=== PATIENT | female | born 1935 | race Caucasian/White ===

== ENCOUNTER → 2018-02-13 | Day surgery (SDC) | payer OTHER, MEDICARE ==
--- NOTE | 2018-02-16 10:50 | OP ---
DATE OF OPERATION: 02/13/2018 PREOPERATIVE DIAGNOSIS: Right breast mass 1 o'clock, 1 cm from the nipple. POSTOPERATIVE DIAGNOSIS: Right breast mass 1 o'clock, 1 cm from the nipple. PROCEDURE: Right ultrasound-guided core biopsy and clip placement. ANESTHESIA: Local. ATTENDING SURGEON: Nia Calero MD ESTIMATED BLOOD LOSS: Minimal. COMPLICATIONS: None. DESCRIPTION OF PROCEDURE: The patient was made aware of the risks and benefits of the procedure and consented. She was placed in a supine position. Under sterile conditions with 1% lidocaine for local anesthesia, a small madi was made in the skin. Using a 10-gauge suction biopsy device via lateral approach under ultrasound guidance, multiple cores were obtained and submitted to Pathology. Likewise, under ultrasound guidance, a bowtie clip was placed into the biopsy region. Well tolerated by patient. Steri-Strips and sterile bandages were then applied. The patient will be contacted with results of the biopsy. NIA CALERO M.D. [id number]
--- NOTE | 2018-02-16 14:51 | PATH ---
Surgical Pathology Report Patient Name: WILLOW LOUIE [facility]. Rec. #: [id number] /Age/Gender: 1935 (Age: 82) / F Account: [id number] Location: [facility] Taken: 02/13/2018 Received: 02/13/2018 Reported: 02/16/2018 Physicians: Nia Claero M.D. 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 Electronically Signed Bryanna Mane M.D. Gross Description Received in formalin labeled "right breast biopsy 1:00, 1 cmfn," are 3 celeste-yellow, cylindrical portions of fibroadipose tissue ranging from 1.1-2.7 cm in length and averaging 0.4 cm in diameter. The specimens are submitted in toto in one cassette. Time to formalin fixation: < 1 minute Total formalin fixation time: Approximately 6 hours. /02/13/2018 saudi/02/13/2018
== END | disposition home or self-care (01) ==
LOC: FRADUS-SUR 11:25
PROVIDERS: ATTEND Surgery Surgical Oncology
PROC: 0HBT3ZX Excision of Right Breast, Percutaneous Approach, Diagnostic (ICD-10-PCS; principal; 2018-02-13)
DX: D24.1 Benign neoplasm of right breast (principal); N63.12 Unspecified lump in the right breast, upper inner quadrant; N60.91 Unspecified benign mammary dysplasia of right breast
CPT/HCPCS: 19083; 87899; 88305-TC; A4648

== ENCOUNTER 2019-08-02 06:50 | Day surgery (SDC) | payer OTHER, MEDICARE ==
[2019-07-28 13:42] VITALS: BMI 30.6
[2019-08-02] MEDS ORDERED: ACETAMINOPHEN 325 MG TABLET (FP) PO PRN (07:02)
[2019-08-02] MEDS ORDERED: IBUPROFEN 400 MG TABLET (FP) PO PRN (07:02)
--- NOTE | 2019-08-02 07:02 | HP ---
History & Physical Update - History History: No Change - Physical Physical: No Change - Assessment Assessment: No Change - Plan Plan: No Change (No change in HP)
[2019-08-02] MEDS ORDERED: PROPOFOL 20 ML ONE ×2 (09:42)
[2019-08-02] MEDS ORDERED: MIDAZOLAM HCL 2 MG/2 ML SINGLE DOSE VIAL ONE (09:42)
[2019-08-02] MEDS ORDERED: KETOROLAC TROMETHAMINE 30 MG/1 ML VIAL ONE (10:11)
[2019-08-02] MEDS ORDERED: oxyCODONE HCL 5 MG TABLET PO PRN (10:30)
[2019-08-02] MEDS ORDERED: LACTATED RINGERS SOLUTION 1,000 ML IV SCH (10:30)
--- NOTE | 2019-08-02 10:43 | OP ---
Operative Note - Note: Operative Date: 08/02/19 Pre-Operative Diagnosis: Cervical polyp. submucosal myoma Operation: Hysteroscopic myomectomy. Suction DC Post-Operative Diagnosis: Other (Same and above endometrial polyp) Anesthesia: General Estimated Blood Loss (mls): 20 Operative Report Dictated: Yes
--- NOTE | 2019-08-02 10:46 | OP ---
DATE OF OPERATION: 08/02/2019 PREOPERATIVE DIAGNOSIS: Cervical polyp and submucosal myoma. OPERATION: Hysteroscopic myomectomy, suction dilation and curettage. POSTOPERATIVE DIAGNOSIS: Cervical polyp and submucosal myoma. SURGEON: Danuta Reyes MD ANESTHESIA: General. DESCRIPTION OF PROCEDURE: Patient was taken to the operating room, placed in dorsal lithotomy position, prepped and draped in the usual sterile fashion. Speculum was placed in the vagina. Anterior lip of the cervix was grasped with a single-tooth tenaculum. Cervix was then dilated to accommodate the operative hysteroscope. Visualization revealed submucosal myoma and endometrial polyps and a cervical polyp. Cervical polyp was then removed using polyp forceps twist off. The cervix was then dilated to accommodate the operative hysteroscope. Hysteroscope was inserted, and submucosal myoma as well as endometrial polyps were seen. Cautery and cutting of the endometrial polyps and submucosal myoma was done. Suction dilation and curettage was done. This procedure was repeated several times until the endometrial cavity was clean. After suctioning and dilation and curettage had been done and contents were then emptied, estimated blood loss was 20 mL. DANUTA REYES M.D. [id number]
[2019-08-02 12:44] VITALS: BP 140/75; PULSE 76; TEMP 97.7
--- NOTE | 2019-08-03 15:46 | PATH ---
Surgical Pathology Report Patient Name: WILLOW LOUIE [facility]. Rec. #: [id number] /Age/Gender: 1935 (Age: 84) / F Account: [id number] Location: [facility] Taken: 08/02/2019 Received: 08/02/2019 Reported: 08/03/2019 Physicians: Danuta Reyes M.D. Specimen(s) Received A: CERVICAL POLYP B: ENDOMETRIAL POLYP C: ENDOMETRIAL CURETTINGS Clinical History Cervical polyp, submucosal myoma Final Diagnosis A. CERVICAL POLYP, SUCTION DILATION AND CURETTAGE: FRAGMENTS OF ENDOCERVICAL POLYP. B. ENDOMETRIAL POLYP, SUCTION DILATION AND CURETTAGE: FRAGMENTS OF ENDOMETRIAL POLYP. C. ENDOMETRIAL CURETTINGS, SUCTION DILATION AND CURETTAGE: FRAGMENTS OF ENDOMETRIAL POLYP AND SCANT BENIGN ENDOCERVICAL TISSUE IN A BACKGROUND OF BLOOD AND MUCUS. Electronically Signed Temi Diallo M.D. Gross Description A. Received in formalin labeled "cervical polyp," is a 2.7 x 2.3 x 0.6 cm pink-celeste, polypoid portion of soft tissue. The specimen is bisected and entirely submitted in 2 cassettes. B. Received in formalin labeled "endometrial polyp," is a 2.3 x 1.7 x 0.5 cm pink-celeste, polypoid portion of soft tissue. The specimen is bisected and entirely submitted in 2 cassettes. C. Received in formalin labeled "endometrial curettings," is a 3.5 x 3.0 x 0.3 cm aggregate of celeste soft tissue fragments admixed with blood-tinged mucous. The formalin is filtered and the specimen is entirely submitted in 2 cassettes. /08/02/201908/02/2019
== END 2019-08-02 12:10 | disposition home or self-care (01) ==
LOC: JASU-SURG 06:50
PROVIDERS: ATTEND Obstetrics & Gynecology
PROC: 0UJD8ZZ Inspection of Uterus and Cervix, Via Natural or Artificial Opening Endoscopic (ICD-10-PCS; 2019-08-02)
PROC: 0UB98ZZ Excision of Uterus, Via Natural or Artificial Opening Endoscopic (ICD-10-PCS; principal; 2019-08-02 09:00)
PROC: 0UDB7ZX Extraction of Endometrium, Via Natural or Artificial Opening, Diagnostic (ICD-10-PCS; 2019-08-02 09:00)
DX: D25.0 Submucous leiomyoma of uterus (principal); N84.1 Polyp of cervix uteri
CPT/HCPCS: 88305-TC; 94760